=== PATIENT | female | born 1995 | race African-American/Black ===

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

== ENCOUNTER 2017-05-20 12:43 | Emergency (ER) | payer MEDICAID ==
[~2017-05-20] VITALS: Ht 172.7 cm; Wt 72.7 kg
[2017-05-20 12:45] VITALS: BP 125/61; TEMP 98
[2017-05-20 16:15] VITALS: PULSE 53
== END 2017-05-20 16:16 | disposition home or self-care (01) ==
LOC: COL.ER 12:43
DX: B34.9 Viral infection, unspecified (principal); Z86.59 Personal history of other mental and behavioral disorders; Z98.890 Other specified postprocedural states

== ENCOUNTER 2017-05-31 01:14 | Emergency (ER) | payer MEDICAID ==
[~2017-05-31] VITALS: Ht 172.7 cm; Wt 72.7 kg
[2017-05-31 01:17] VITALS: BP 138/67; TEMP 97.1
[2017-05-31 02:00] LABS: BASO # 0.1 (0.0-0.2); BASO % 0.6 % (0.0-2.0); EOS # 0.1 (0.0-0.7); GRAN # 5.4 (1.4-6.5); GRAN % 62.4 % (42.2-75.2); HEMATOCRIT 37.6 % (35.0-45.0); HEMOGLOBIN 12.4 g/dl (12.0-15.0); LYMPH # 2.4 (1.2-3.4); LYMPH % 27.8 % (20.0-51.0); MEAN CELL VOLUME 92 fl (80.0-95.0); MEAN CORPUSCULAR HEMOGLOBIN 30 pg (26.0-32.0); MEAN CORPUSCULAR HGB CONC 33 g/dl (33.0-37.0); MONO # 0.7 (0.1-0.6); PLATELET COUNT 236 K/mm3 (130-400); RED BLOOD COUNT 4.11 M/mm3 (4.10-5.30); REDCELL DISTRIBUTION WIDTH-CV 12.8 % (11.5-14.5)
[2017-05-31 02:13] LABS: ALANINE AMINOTRANSFERASE 25 U/L (9-52); ALBUMIN 4.7 gm/dL (3.5-5.0); ALKALINE PHOSPHATASE 79 U/L (50-136); ANION GAP 9 mmol/L (7-16); AST,SGOT 25 U/L (15-37); BILIRUBIN,TOTAL 0.6 mg/dL (0.0-1.0); BLOOD UREA NITROGEN 14 mg/dL (7-17); CARBON DIOXIDE 25 mmol/L (22-30); CHLORIDE 107 mmol/L (98-107); CREATININE, serum 0.78 mg/dL (0.52-1.25); GLUCOSE 91 mg/dL (74-106); LIPASE 111 U/L (23-300); POTASSIUM 3.5 mmol/L (3.4-5.0); SODIUM 142 mmol/L (137-145); TOTAL PROTEIN 8.5 gm/dL (6.4-8.2)
[2017-05-31 02:16] LABS: C-REACTIVE PROTEIN < 0.5 mg/dL (0.0-0.9)
[2017-05-31 02:19] LABS: COLLECTION METHOD CLEAN CATCH
[2017-05-31 02:31] LABS: MUCOUS Present /lpf; PH 6 (5-8); URINE APPEARANCE Clear; URINE BACTERIA None Seen /hpf; URINE BILIRUBIN Negative (NEGATIVE); URINE BLOOD Negative (NEGATIVE); URINE COLOR Yellow; URINE GLUCOSE Negative (NEGATIVE); URINE KETONE Negative (NEGATIVE); URINE LEUKOCYTE ESTERASE Negative (NEGATIVE); URINE NITRATE Negative (NEGATIVE); URINE PROTEIN(semi-quant) Negative (NEGATIVE); URINE RBC 0-2 /hpf
[2017-05-31 03:00] VITALS: PULSE 55
== END 2017-05-31 03:00 | disposition home or self-care (01) ==
LOC: COL.ER 01:14
PROVIDERS: Family Medicine
DX: R10.30 Lower abdominal pain, unspecified (principal)

== ENCOUNTER 2023-12-26 23:10 | Emergency (ER) | payer OTHER ==
[~2023-12-26] VITALS: Ht 175.3 cm; Wt 81.8 kg
[~2023-12-26 23:10] MED LIST changes: +AMOXICILLIN 8751 TAB PO
[2023-12-26 23:17] VITALS: TEMP 99.4
[2023-12-26] MEDS ORDERED: Ondansetron 4 MG/2 ML VIAL IV ONE (23:45)
[2023-12-26] MEDS ORDERED: NS 1,000 ML IV ONE (23:45)
[2023-12-26] MEDS ORDERED: Ketorolac 30 MG/ML VIAL IV ONE (23:45)
[2023-12-26 23:49] LABS: COLLECTION METHOD CLEAN CATCH
[2023-12-26 23:53] LABS: BASO % 0.2 % (0.0-2.0); EOS % 0.1 % (0.0-4.0); GRAN # 13.9 K/mm3 (1.4-6.5); HEMATOCRIT 37.5 % (37.0-47.0); HEMOGLOBIN 12.6 g/dl (12.5-16.0); LYMPH # 1.4 K/mm3 (1.2-3.4); LYMPH % 8.6 % (20.0-51.0); MEAN CELL VOLUME 90 fl (80.0-100.0); MEAN CORPUSCULAR HEMOGLOBIN 30 pg (27-31); MEAN CORPUSCULAR HGB CONC 34 g/dl (33.0-37.0); MEAN PLATELET VOLUME 12.3 fl (7.4-10.4); MONO # 1.1 K/mm3 (0.1-0.6); MONO % 6.8 % (1.7-9.3); PLATELET COUNT 184 K/mm3 (130-400); RED BLOOD COUNT 4.16 M/mm3 (4.10-5.30); REDCELL DISTRIBUTION WIDTH-CV 12.7 % (11.5-14.5)
[2023-12-26 23:59] LABS: URINE APPEARANCE CLOUDY (CLEAR/HAZY); URINE BLOOD 2+ (NEGATIVE); URINE COLOR YELLOW (YELLOW); URINE GLUCOSE NEGATIVE (NEGATIVE); URINE KETONE TRACE (NEGATIVE); URINE NITRATE NEGATIVE (NEGATIVE); URINE PROTEIN(semi-quant) 1+ (NEGATIVE)
[2023-12-27 00:08] LABS: ALBUMIN 3.6 g/dL (3.5-5.0); BILIRUBIN,TOTAL 1.2 mg/dL (0.2-1.2); CREATININE, serum 1.15 mg/dL (0.57-1.11); POTASSIUM 3.3 mEq/L (3.5-4.5); TOTAL PROTEIN 8.1 g/dl (6.2-8.1)
[2023-12-27] MEDS ORDERED: cefTRIAXone 1 G in Water For Injection,Sterile 10 ML IV ONE (00:45)
[2023-12-27] MEDS ORDERED: Iohexol 300 - 100 ML VIAL IV ONE (00:57)
[2023-12-27] MEDS ORDERED: NS 50 ML IV ONE (01:00)
[2023-12-27] MEDS ORDERED: CIPRO 500MG TA500 MG PO (02:44)
[2023-12-27 03:08] VITALS: BP 127/97; PULSE 79
== END 2023-12-27 03:00 | disposition home or self-care (01) ==
LOC: COL.ER 23:10
PROVIDERS: Physician Assistant
DX: N12 Tubulo-interstitial nephritis, not specified as acute or chronic (principal)
CPT/HCPCS: J0696; J1885; J2405; J7030; Q9967